=== PATIENT | male | born 1960 | race Caucasian/White ===

== ENCOUNTER 2016-12-04 06:01 | Day surgery (SDC) | payer BC, OTHER ==
[2016-12-04 06:48] VITALS: TEMP 98.1
[2016-12-04] MEDS ORDERED: NS 500 ML IV ONE (06:49)
[2016-12-04] MEDS ORDERED: LIDOCAINE 1% 2 ML INJ ID PRN (06:49)
[2016-12-04] MEDS ORDERED: LIDOCAINE 1% 2 ML INJ ONE (06:51)
[2016-12-04] MEDS ORDERED: MIDAZOLAM 2 MG/2 ML VIAL ONE (07:19)
[2016-12-04] MEDS ORDERED: fentaNYL 100 MCG/2 ML INJ ONE (07:20)
--- NOTE | 2016-12-04 07:21 | PDHPUP ---
History & Physical Update H&P update statement: This history and physical update is based on an assessment of the patient which was completed after admission or registration (within 24 hours), but prior to the surgery/procedure.
--- NOTE | 2016-12-04 07:31 | PDPROPOC ---
Sedation Plan of Care ASA Classification: ASA 2 Planned drugs: fentanyl, midazolam Mallampati Score: Class 2 Mallampati Reference Image: Patient passed 3-3-2 rule?: Yes
--- NOTE | 2016-12-04 08:12 | POSTOPPROG ---
Post Op Note Date of Operation: 12/04/16 Surgeon: José Manuel Garcia [employer] Instructor: none Anesthesiologist: none Anesthesia: IV Sedation Pre-op Diagnosis: abdominal pain Post-op Diagnosis: Sigmoid polyp/mass, colitis rectosigmoid, claudio diverticulosis Procedure: Colonoscopy with biopsy, injection of mansi ink Findings: polyp 35 cm Inf/Abcess present in the surg proc area at time of surgery?: No EBL: Minimal Specimen(s): Rectosigmoid random bx, polyp bx
[2016-12-04 08:29] VITALS: RESP 14; O2SAT 100
[2016-12-04 08:50] VITALS: BP 127/62; PULSE 75
--- NOTE | 2016-12-04 12:05 | GOP ---
[f rep st] OPERATIVE REPORT DATE OF OPERATION: SURGEON: José Manuel Garcia MD ANESTHESIOLOGIST: There was no anesthesiologist. PREOPERATIVE DIAGNOSIS: Abdominal pain. POSTOPERATIVE DIAGNOSIS: Diverticulosis, sigmoid colon polyp, left-sided colitis. PROCEDURE PERFORMED: Colonoscopy with random colon biopsy and biopsy of colonic polyp, pedunculated, not amenable to endoscopic resection, Mansi ink tattoo/injection of material. FINDINGS: SPECIMENS: As described. INDICATIONS: A 56-year-old gentleman who presented initially for evaluation of groin hernia and foun d to have severe abdominal pain on the left side. The patient was [facility] He is here for elective colonoscopy for abdominal pain. DESCRIPTION OF PROCEDURE: The patient was brought to the GI suite after time-out procedure in the [facility] fashion. The patient was placed in left lateral decubitus position and given me dications in a titrated fashion for the procedure. The colon prep was poor throughout the colon due to partial obstructing polyp and abdominal pain. The digital rectal exam showed external hemorrhoid at the posterior aspect of the rectum and an internal hemorrhoid as well. Digital exam showed normal tone and no other masses. The endoscope was introduced into the rectum. Retroflexion was performed , showing and confirming the internal hemorrhoids. The colonoscope was advanced through the colon to the terminal ileum. The prep was poor. Terminal ileum was unremarkable. Circumferential inspectio n of the colonic mucosa was done with irrigation and aspiration of the areas. There was no obvious p olyp or other lesion until the sigmoid colon. The findings were also claudio diverticulosis from the sig moid colon to the right colon. There were large wide-mouth diverticula without any signs of infectio n. There was colitis of the left colon from the mid sigmoid to the rectum. Random biopsies were per formed. There was a pedunculated polyp, approximately 3.5 cm x 2 cm with a 1 cm stalk, not amenable to snare polypectomy. The biopsies were performed along this stalk and the polyp itself and sent for pathologic review. The patient tolerated the procedure well. The friable mucosa of the distal colo n had spontaneous cessation of bleeding. Excess air was removed on withdrawal of the endoscope. The patient was then taken to the recovery room in stable condition. There were no immediate complicati ons. MEDICATION USED: 4 mg of Versed and 100 mg of fentanyl. COMPLICATIONS: There were no complications. FLUID GIVEN: 500 cc crystalloid. /[id number]/MODL
== END 2016-12-04 08:58 | disposition home or self-care (01) ==
LOC: FSGY 06:01
PROVIDERS: ATTEND Surgery
PROC: 0DBN8ZX Excision of Sigmoid Colon, Via Natural or Artificial Opening Endoscopic, Diagnostic (ICD-10-PCS; principal; 2016-12-04 07:30)
DX: K57.30 Diverticulosis of large intestine without perforation or abscess without bleeding (principal); K63.5 Polyp of colon; K52.9 Noninfective gastroenteritis and colitis, unspecified
CPT/HCPCS: J2250; J3010